=== PATIENT | female | born 1955 | race Caucasian/White ===

== ENCOUNTER 2021-08-24 00:54 | Day surgery (SDC) | payer BC, SELFPAY ==
[2021-08-22 08:32] VITALS: BMI 25.8
[2021-08-24 06:27] VITALS: BP 143/79; PULSE 75; RESP 18; TEMP 36.1; O2SAT 99
[2021-08-24] MEDS: LACTATED RINGERS 1,000 ML 150 ML IV CONT (06:34)
--- NOTE | 2021-08-24 06:47 | WPDGICN ---
Assessment and Plan Assessment and plan (1) Colon cancer screening: Code(s): Z12.11 - Encounter for screening for malignant neoplasm of colon Status: Acute (2) Personal history of colonic polyps: Code(s): Z86.010 - Personal history of colonic polyps Status: Acute Assessment and Plan: Colonoscopy with possible biopsy or polypectomy or cautery or injection of substances. GI Consult Note Consult date/time: 08/24/21 06:47 HPI: Aubrie Sanz is a 66 year old female Was referred for colon cancer screening. She had a polyp removed about 12 years ago. Her last colonoscopy was in 2016. She is not having any blood in her stools or other significant symptoms at this time, except that over the past few years she has noticed her stools are softer and she has bowel movements with a little more urgency. Occasionally she actually have an accident. Review of Systems Review of Systems: All systems reviewed & are unremarkable except as noted in HPI and below PMFSH Past Medical History Medical History B12 deficiency Depression Hyperlipidemia LDL goal <100 Hypothyroidism (acquired) Osteoporosis Vitamin D deficiency Family History Family History Grandparent Acute myocardial infarction Family history of lung cancer Mother Acute myocardial infarction Sibling Acute myocardial infarction Social History Social History Smoking packs per day: 1 Smoking cigarettes per day: 20.0 Years smoked: 20 Smoking pack-years: 20.00 Smoking status: Current some day smoker Tobacco type: cigarettes Smoking end date: 05/28/08 Additional smoking assessment comments: STARTED SMOKING AGAIN 02/2021 SMOKING COUPLE CIGS A DAY, PLANNING TO STOP Alcohol intake: current Drinks per week: 10 Alcohol use details: GLASSES WINE Substance use: never Substance use type: does not use Living arrangements: with family Gender identity (if verbalized by the patient): Female Spiritual care concerns: No Meds Home Medications and Allergies Home Medications Medication Instructions Recorded Confirmed Type atorvastatin 40 mg tablet 40 mg PO QHS #90 tablet 06/01/21 08/22/21 Rx fluoxetine 40 mg capsule 40 mg PO DAILY #90 cap 06/01/21 08/22/21 Rx liothyronine 25 mcg tablet 25 mcg PO DAILY #90 tablet 06/07/21 08/22/21 Rx cholecalciferol (vitamin D3) 25 mcg PO DAILY 08/22/21 08/22/21 History [Vitamin D3] Allergies Allergy/AdvReac Type Severity Reaction Status Date / Time amoxicillin Allergy Unknown Unknown Verified 08/24/21 06:24 Penicillins Allergy Unknown Unknown Verified 08/24/21 06:24 NFA Allergy Unknown Unknown Uncoded 08/24/21 06:24 Vital Signs Vital Signs - 24 hr 08/24/21 06:27 Temperature 36.1 C L Pulse Rate 75 Respiratory Rate 18 Blood Pressure 143/79 H Pulse Oximetry 99 Exam Const: General: alert Orientation/consciousness: patient oriented x3 Resp: Auscultation: clear to auscultation bilaterally Cardio: Rhythm: regular rhythm GI: GI Palp: Yes Soft to palpation and No Tenderness to palpation present (GI) Neuro: General: patient oriented x3 AMG Consult Billing Observation Consult [id number] [facility] Pt Lvl 2
--- NOTE | 2021-08-24 07:20 | P.PNAN_ITS ---
Anes - Initial Pre Proc Eval Procedure: Operation Date: 08/24/21 07:30 Proposed Procedures p Colonoscopy - Ney Strickland MD Date/Time: 08/24/21 07:20 Surgeon: Ney Strickland MD Pre Op Diagnosis: hx of colon polyps, neoplasm screening Patient Data Age: 66 Gender: F Height: 1.57 m Weight: 61.4 kg Last Vital Signs Temp 36.1 C L 08/24/21 06:27 Pulse 75 08/24/21 06:27 Resp 18 08/24/21 06:27 BP 143/79 H 08/24/21 06:27 Pulse Ox 99 08/24/21 06:27 Allergies Allergy/AdvReac Type Severity Reaction Status Date / Time amoxicillin Allergy Unknown Unknown Verified 08/24/21 06:24 Penicillins Allergy Unknown Unknown Verified 08/24/21 06:24 NFA Allergy Unknown Unknown Uncoded 08/24/21 06:24 Home Medications Medication Instructions Recorded Confirmed Type atorvastatin 40 mg tablet 40 mg PO QHS #90 tablet 06/01/21 08/22/21 Rx fluoxetine 40 mg capsule 40 mg PO DAILY #90 cap 06/01/21 08/22/21 Rx liothyronine 25 mcg tablet 25 mcg PO DAILY #90 tablet 06/07/21 08/22/21 Rx cholecalciferol (vitamin D3) 25 mcg PO DAILY 08/22/21 08/22/21 History [Vitamin D3] Patient hx anesthesia problems: none Family hx anesthesia problems: none Results Review: All pre-operative results and documents have been reviewed as part of the pre-operative evaluation. [facility] Past Medical History Medical History B12 deficiency Depression Hyperlipidemia LDL goal <100 Hypothyroidism (acquired) Osteoporosis Vitamin D deficiency Family History Family History Grandparent Acute myocardial infarction Family history of lung cancer Mother Acute myocardial infarction Sibling Acute myocardial infarction Social History Social History Smoking packs per day: 1 Smoking cigarettes per day: 20.0 Years smoked: 20 Smoking pack-years: 20.00 Smoking status: Current some day smoker Tobacco type: cigarettes Smoking end date: 05/28/08 Additional smoking assessment comments: STARTED SMOKING AGAIN 02/2021 SMOKING COUPLE CIGS A DAY, PLANNING TO STOP Alcohol intake: current Drinks per week: 10 Alcohol use details: GLASSES WINE Substance use: never Substance use type: does not use Living arrangements: with family Gender identity (if verbalized by the patient): Female Spiritual care concerns: No Anes - Eval Final PreProcedure Day of Procedure 08/24/21 07:20 Patient weight: normal Heart: regular rate and rhythm Lungs: clear to auscultation and normal air movement Airway: Mallampati scale class II Neurological: alert and oriented Last oral intake: >/= 8 hours ASA classification: II Emergent: no Anesthetic plan: proceed Anesthesia type and monitoring: general GIVS Results Review: All pre-operative results and documents have been reviewed as part of the pre-operative evaluation. Informed Consent: The patient's anesthetic plan and its attendant risks and benefits were discussed with the patient/family/POA. Questions were solicited and answers provided to the satisfaction of the patient/family/POA.
[2021-08-24 07:46] VITALS: BP 115/70; PULSE 64; RESP 20; O2SAT 99
[2021-08-24 07:56] VITALS: BP 125/80; PULSE 69; RESP 18; O2SAT 100
[2021-08-24 08:06] VITALS: BP 122/80; PULSE 55; RESP 14; O2SAT 100
== END 2021-08-24 08:29 | disposition home or self-care (01) ==
PROVIDERS: PCP Family Medicine; Visit Provider Internal Medicine Gastroenterology
PROC: 0DJD8ZZ Inspection of Lower Intestinal Tract, Via Natural or Artificial Opening Endoscopic (ICD-10-PCS; CPT 45378; principal; 2021-08-24 07:30)
DX: Z12.11 Encounter for screening for malignant neoplasm of colon (principal); K64.8 Other hemorrhoids; K57.30 Diverticulosis of large intestine without perforation or abscess without bleeding; Z86.010 Personal history of colon polyps; E03.9 Hypothyroidism, unspecified; M81.0 Age-related osteoporosis without current pathological fracture; E55.9 Vitamin D deficiency, unspecified; E78.5 Hyperlipidemia, unspecified; E53.8 Deficiency of other specified B group vitamins; F32.9 Major depressive disorder, single episode, unspecified; F17.210 Nicotine dependence, cigarettes, uncomplicated
CPT/HCPCS: 45380; 88305; J2704; J7120

== ENCOUNTER 2021-09-06 13:58 | Outpatient (CLI) | payer BC, SELFPAY ==
--- NOTE | ~2021-09-06 | XR_ITS ---
EXAM: XR hip RT min 3V w AP pelvis HISTORY: M25.551 - Pain in right hip, OVERUSE INJURY X 1 YEAR AGO COMPARISON: None available FINDINGS: Severe degenerative lumbar changes. Mild bilateral SI joint degenerative change. Superior hip joint space narrowing and sclerosis, moderate in the right hip and mild in the left. No fracture or dislocation. No lytic or blastic lesion. IMPRESSION: Moderate right hip osteoarthritis. Reviewed, dictated and finalized at location K.
== END 2021-09-06 13:59 | disposition home or self-care (01) ==
PROVIDERS: PCP Family Medicine; Visit Provider Family Medicine
DX: M16.11 Unilateral primary osteoarthritis, right hip (principal)
CPT/HCPCS: 73502

== ENCOUNTER 2022-03-15 15:39 | Outpatient (CLI) | payer MEDICARE, BC, SELFPAY ==
--- NOTE | ~2022-03-15 | MM_ITS ---
EXAMINATION: MM screening [facility] BI w jc HISTORY: Screening TECHNIQUE: Craniocaudal and mediolateral oblique 3-D tomosynthesis images were obtained and synthetic 2-D images were generated. CAD analysis was submitted and interpreted. COMPARISON: Comparison to multiple prior studies sequentially, with oldest reviewed study dated 09/21. BREAST PARENCHYMAL COMPOSITION: There are scattered areas of fibroglandular density. FINDINGS: There is no evidence of suspicious mass, calcification, or architectural distortion to sugg est malignancy in either breast. There has been no suspicious interval change. IMPRESSION: 1. No mammographic evidence of malignancy. 2. Recommend routine screening mammography in one year. BI-RADS Category 1: Negative Reviewed, dictated and finalized at location A.
== END 2022-03-15 15:40 | disposition home or self-care (01) ==
LOC: ANHIMG 15:44
PROVIDERS: PCP Family Medicine; Visit Provider Family Medicine
DX: Z12.31 Encounter for screening mammogram for malignant neoplasm of breast (principal)
CPT/HCPCS: 77063; 77067

== ENCOUNTER 2022-07-10 10:31 | Outpatient (CLI) | payer OTHER, SELFPAY ==
--- NOTE | 2022-07-10 10:46 | ECG_ITS ---
Measurements Intervals [place] Rate: 67 P: 64 CA: 160 QRS: -55 QRSD: 94 T: 0 QT: 397 QTc: 420 Interpretive Statements SINUS RHYTHM WITH OCCASIONAL SUPRAVENTRICULAR PREMATURE COMPLEXES LEFT ANTERIOR FASCICULAR BLOCK [QRS AXIS <= -45, QR IN I, RS IN II] ABNORMAL ECG NO PREVIOUS ECG AVAILABLE FOR COMPARISON Electronically Signed On 07-10-2022 12:18:09 CLEANING TEAM MEMBER by Felix Hassan M.D.
== END 2022-07-10 10:32 | disposition home or self-care (01) ==
PROVIDERS: PCP Family Medicine; Visit Provider Family Medicine
DX: I49.8 Other specified cardiac arrhythmias (principal); I44.4 Left anterior fascicular block
CPT/HCPCS: 93005

== ENCOUNTER 2022-09-01 14:41 | Outpatient (CLI) | payer OTHER, SELFPAY ==
--- NOTE | ~2022-09-01 | DEXA_ITS ---
Bone Density Report Name: JW CHAVARRIA Age: 67 Sex: Female Ethnicity: White Date of : 1955 Indication: postmenopausal; screening for osteoporosis; height loss; Referring Provider: MARY ANN TANNER Study: Bone densitometry was performed. Exam Date: September 01, 2022 Accession number: [id number] Bone Density: Region BMD T-score Z-score Classification AP Spine(L1-L4) 1.135 0.8 2.6 Normal Femoral Neck (Left) 0.596 -2.3 -0.7 Osteopenia Total Hip (Left) 0.750 -1.6 -0.3 Osteopenia Femoral Neck (Right) 0.638 -1.9 -0.4 Osteopenia Total Hip (Right) 0.709 -1.9 -0.7 Osteopenia Total Hip Mean 0.729 -1.8 -0.5 Osteopenia World Health Organization criteria for BMD impression classify patients as: Normal (T-score at or above -1.0), Osteopenia (T-score between -1.0 and -2.5), or Osteoporosis (T-score at or below -2.5). 10-year Fracture Risk: FRAX not reported because: Treated for osteoporosis Clinical Information Provided by Patient: Smokes Is being treated for osteoporosis Has used the following medications: Reclast (i.e. zoledronate), Vitamin D Patient maximum height was 63 Menopause Age: 57 Does not regularly consume dairy products Drinks caffeinated beverages Onset of menses at age 14 Number of children 0 Impression: The patient has low bone mass, based on the Left Femoral Neck T-score. The patient has risk factors, including: smoking. Discussion: It is important to ask patients whether they are taking their medications and to encourage continued and appropriate compliance with their osteoporosis therapies to reduce fracture risk. It is also important to review their risk factors and encourage appropriate calcium and vitamin D intakes, exercise, fall prevention and other lifestyle measures. Follow-Up: Consider a repeat BMD and Vertebral Fracture Assessment (VFA) exam in 2 years or sooner if medically necessary, to reassess this patient's status. Reported by: CHRISTINE on 09/01/2022 2:57:00 PM. Reviewed, dictated and finalized at location A. JACEK
== END 2022-09-01 14:42 | disposition home or self-care (01) ==
LOC: ANHIMG 14:43
PROVIDERS: PCP Family Medicine; Visit Provider Family Medicine
DX: M81.0 Age-related osteoporosis without current pathological fracture (principal); M85.852 Other specified disorders of bone density and structure, left thigh; M85.851 Other specified disorders of bone density and structure, right thigh
CPT/HCPCS: 77080

== ENCOUNTER 2022-12-06 10:43 | Outpatient (CLI) | payer OTHER, SELFPAY ==
[2022-12-06 18:30] LABS: Alanine Aminotransferase 28 U/L (6-35); Alkaline Phosphatase 57 U/L (38-126); Anion Gap -2 mmol/L (8-16); Aspartate Amino Transferase 33 U/L (14-36); Blood Urea Nitrogen 12 mg/dL (7-17); Calcium 8.7 mg/dL (8.4-10.2); Carbon Dioxide 31 mmol/L (22-30); Chloride 105 mmol/L (98-107); Estimated Glomerular Filt Rate > 60; Glucose 88 mg/dL (65-110); Potassium 4.2 mmol/L (3.4-5.0); Sodium 134 mmol/L (137-145)
[2022-12-06 19:14] LABS: Thyroid Stimulating Hormone Reflex 0.365 uIU/mL (0.465-4.68)
[2022-12-06 19:39] LABS: Free T4 Free Thyroxine Reflex 0.17 ng/dL (0.78-2.19)
== END 2022-12-06 10:44 | disposition home or self-care (01) ==
LOC: ANHGOSHLAB 10:44
PROVIDERS: PCP Family Medicine; Visit Provider Family Medicine
DX: E78.5 Hyperlipidemia, unspecified (principal); Z79.899 Other long term (current) drug therapy; E03.9 Hypothyroidism, unspecified
CPT/HCPCS: 36415; 80053; 84439; 84443

== ENCOUNTER 2023-03-21 11:31 | Outpatient (CLI) | payer OTHER, SELFPAY ==
[2023-03-21 12:24] LABS: CRP < 0.5 mg/dL (<1.0)
[2023-03-21 12:31] LABS: Erythrocyte Sedimentation Rate 16 mm/hr (0-20)
[2023-03-21 12:58] LABS: Thyroid Stimulating Hormone Reflex 0.707 uIU/mL (0.465-4.68)
[2023-03-26 13:37] LABS: Immunoglobulin A 142 mg/dL (70-320); TTG IGA AB <1.0 U/mL (<15.0)
== END 2023-03-21 11:32 | disposition home or self-care (01) ==
LOC: ANHLAB 11:34
PROVIDERS: PCP Family Medicine; Referring Provider Nurse Practitioner; Visit Provider Family Medicine
DX: E03.9 Hypothyroidism, unspecified (principal); K58.0 Irritable bowel syndrome with diarrhea
CPT/HCPCS: 36415; 82784; 84443; 85652; 86140; 86364

== ENCOUNTER 2023-03-27 13:13 | Outpatient (NON) | payer OTHER, SELFPAY ==
[2023-03-27 14:47] LABS: Toxigenic C. Diff NEGATIVE (NEGATIVE)
[2023-04-04 21:12] LABS: Calprotectin, Stool 32 mcg/g; Pancreatic Elastase, Stool >500 mcg/g
== END 2023-03-27 13:14 | disposition home or self-care (01) ==
PROVIDERS: PCP Family Medicine; Visit Provider Nurse Practitioner
DX: K58.0 Irritable bowel syndrome with diarrhea (principal)
CPT/HCPCS: 82653; 83993; 87045; 87427; 87449; 87493

== ENCOUNTER 2023-08-13 10:22 | Outpatient (CLI) | payer OTHER, SELFPAY ==
[2023-08-13 11:09] LABS: Basophils Percent Auto 0.7 % (0.2-1.2); Eosinophils Absolute Auto 0.2 K/mm3 (0-0.3); Hematocrit 41.9 % (37.0-47.0); Hemoglobin 13.4 g/dL (12.0-15.0); Immature Granulocyte Absolute 0.01 K/mm3 (0.00-0.031); Immature Granulocyte Percent A 0.2 % (0-0.5); Lymphocytes Absolute Auto 2.45 K/mm3 (0.9-3.2); Lymphocytes Percent Auto 40.4 % (18.3-44.2); Mean Corpuscular Hemoglobin 32.2 pg (26-34); Mean Corpuscular Volume 100.7 fl (80-100); Mean Platelet Volume 10.7 fl (7.4-10.4); Monocytes Absolute Auto 0.5 K/mm3 (0.1-0.6); Monocytes Percent Auto 8.1 % (2.6-8.5); Neutrophils Absolute Auto 2.9 K/mm3 (1.3-6.7); Neutrophils Percent Auto 47.6 % (45.5-73.1); Platelet Count Result 253 k/mm3 (150-375); Red Blood Count 4.16 M/mm3 (4.2-5.4); Red Cell Distribution Width 14.2 % (11.5-14.5); White Blood Count 6.1 K/mm3 (4.5-10.0)
[2023-08-13 11:33] LABS: LDL Cholesterol Direct 67 mg/dL
[2023-08-13 11:34] LABS: Alanine Aminotransferase 30 U/L (6-35); Albumin Level 4.5 g/dL (3.5-5.1); Alkaline Phosphatase 82 U/L (38-126); Anion Gap 5 mmol/L (8-16); Aspartate Amino Transferase 35 U/L (14-36); Bilirubin,Total 1.1 mg/dL (0.2-1.3); Blood Urea Nitrogen 18 mg/dL (7-17); Calcium 9.7 mg/dL (8.4-10.2); Carbon Dioxide 29 mmol/L (22-30); Chloride 105 mmol/L (98-107); Cholesterol 186 mg/dL (0-200); Estimated Glomerular Filt Rate > 60; Glucose 94 mg/dL (65-110); Sodium 139 mmol/L (137-145); Triglycerides 58 mg/dL (<150)
[2023-08-13 12:16] LABS: HDL Direct 77 mg/dL
[2023-08-13 13:28] LABS: Vitamin D 25 Hydroxy 55.6 ng/mL
[2023-08-13 13:42] LABS: Thyroid Stimulating Hormone Reflex 0.244 uIU/mL (0.465-4.68)
[2023-08-13 15:49] LABS: Free T4 Free Thyroxine Reflex 0.27 ng/dL (0.78-2.19)
== END 2023-08-13 10:23 | disposition home or self-care (01) ==
PROVIDERS: PCP Family Medicine; Visit Provider Family Medicine
DX: E03.9 Hypothyroidism, unspecified (principal); E78.5 Hyperlipidemia, unspecified; E55.9 Vitamin D deficiency, unspecified; F32.9 Major depressive disorder, single episode, unspecified; Z00.00 Encounter for general adult medical examination without abnormal findings; E53.8 Deficiency of other specified B group vitamins
CPT/HCPCS: 36415; 80053; 80061; 82306; 82607; 84439; 84443; 85025

== ENCOUNTER 2023-12-31 10:16 | Outpatient (CLI) | payer OTHER, SELFPAY ==
--- NOTE | ~2023-12-31 | CT_ITS ---
CT Scan of the Chest without Contrast: Clinical Indication: Lung cancer screening, nicotine dependence Technique: Contiguous sections were acquired throughout the chest without intravenous contrast. Dose reduction technique was used on this scan by utilizing automated exposure control and iterative recon struction technique. The dose-length product (DLP) was 70.52 mGy-cm. Findings: There is no evidence of any significant mediastinal, hilar or axillary lymphadenopathy. Coronary jason ry calcifications are present. There is no evidence of pleural or pericardial effusion. 3 mm pleural-based nodule noted right lower lobe (axial image 71). 2 mm left lower lobe pulmonary nod ule present (axial image 71). Images through the upper abdomen reveal no abnormalities. Impression: Lung RADS 2: Benign appearance. 12 month follow-up screening CT advised. Reviewed, dictated and finalized at location . Impression: Lung RADS 2: Benign appearance. 12 month follow-up screening CT advised.
== END 2023-12-31 10:17 | disposition home or self-care (01) ==
LOC: ANHIMG 10:16
PROVIDERS: PCP Family Medicine; Visit Provider Family Medicine
DX: Z12.2 Encounter for screening for malignant neoplasm of respiratory organs (principal); Z87.891 Personal history of nicotine dependence
CPT/HCPCS: 71271

== ENCOUNTER 2024-04-22 09:41 | Outpatient (CLI) | payer OTHER, MEDICAID, SELFPAY ==
--- NOTE | ~2024-04-22 | MM_ITS ---
EXAMINATION: MM screening [facility] BI w jc HISTORY: Screening TECHNIQUE: Craniocaudal and mediolateral oblique 3-D tomosynthesis images were obtained and synthetic 2-D images were generated. CAD analysis was submitted and interpreted. COMPARISON: Comparison to multiple prior studies sequentially, with oldest reviewed study dated 02/25. BREAST PARENCHYMAL COMPOSITION: Not dense: There are scattered areas of fibroglandular density. FINDINGS: There is no evidence of suspicious mass, calcification, or architectural distortion to sugg est malignancy in either breast. There has been no suspicious interval change. IMPRESSION: 1. No mammographic evidence of malignancy. 2. Recommend routine screening mammography in one year. BI-RADS Category 1: Negative Reviewed, dictated and finalized at location B. 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
== END 2024-04-22 09:42 | disposition home or self-care (01) ==
LOC: ANHIMG 09:42
PROVIDERS: PCP Family Medicine; Visit Provider Family Medicine
DX: Z12.31 Encounter for screening mammogram for malignant neoplasm of breast (principal)
CPT/HCPCS: 77063; 77067

== ENCOUNTER 2024-04-22 10:25 | Outpatient (CLI) | payer OTHER, MEDICAID, SELFPAY ==
[2024-04-22 11:07] LABS: Alanine Aminotransferase 32 U/L (6-35); Albumin Level 4.8 g/dL (3.5-5.1); Alkaline Phosphatase 80 U/L (38-126); Anion Gap 4 mmol/L (4-12); Aspartate Amino Transferase 38 U/L (14-36); Bilirubin,Total 1.2 mg/dL (0.2-1.3); Blood Urea Nitrogen 9 mg/dL (7-17); Calcium 9.8 mg/dL (8.4-10.2); Carbon Dioxide 30 mmol/L (22-30); Chloride 106 mmol/L (98-107); Estimated Glomerular Filt Rate > 60; Glucose 97 mg/dL (65-110); Sodium 140 mmol/L (137-145)
[2024-04-22 11:41] LABS: Thyroid Stimulating Hormone Reflex 0.248 uIU/mL (0.465-4.68)
[2024-04-22 15:29] LABS: Free T4 Free Thyroxine Reflex 0.28 ng/dL (0.78-2.19)
== END 2024-04-22 10:26 | disposition home or self-care (01) ==
LOC: ANHLAB 10:26
PROVIDERS: PCP Family Medicine; Visit Provider Family Medicine
DX: E03.9 Hypothyroidism, unspecified (principal); K58.0 Irritable bowel syndrome with diarrhea; I10 Essential (primary) hypertension
CPT/HCPCS: 36415; 80053; 84439; 84443

== ENCOUNTER 2024-10-07 13:47 | Outpatient (CLI) | payer MEDICARE, SELFPAY ==
--- NOTE | ~2024-10-07 | XR_ITS ---
EXAMINATION: XR lg joint inject/asp w image DATE: 10/07/2024 14:55 INDICATION: Right hip arthritis TECHNIQUE: A time-out was performed to verify the patient's name, date of , and procedure to b e performed. The procedure including the risks, benefits, and alternatives was discussed with the pat ient. Risks discussed included bleeding and infection. The patient understood the risks and agreed to proceed. The skin overlying the right hip joint was prepped and draped in usual sterile fashion. A nesthetic was administered with 1% lidocaine subcutaneously. A 22 G needle was advanced under fluoro scopic guidance into the joint. Injection of 1 mL of Omnipaque 240 confirmed intra-articular positio n of the needle. Subsequently, injectate consisting of 3 mL of a 2:1 mixture of 0.5% bupivacaine: 80 mg/mL Depo-Medrol for a total dose of 80 mg Depo-Medrol was instilled. Washout of contrast was seen confirming intra-articular administration. The needle was removed and the entry site was cleaned and dressed. There were no immediate complications. Fluoroscopy exposure time was 0.1 minutes. The total number of images was 1. Total DAP was 0.455 Gycm^2 FINDINGS: Real-time fluoroscopy demonstrates the needle in the right hip joint. Patient's pain prior to procedure:5/10. Patient's pain following the procedure: 0/10. IMPRESSION: 1. Successful right hip joint injection of local anesthetic and steroid with decrease in the patient' s presenting pain. Reviewed, dictated and finalized at location A. IMPRESSION: 1. Successful right hip joint injection of local anesthetic and steroid with de crease in the patient's presenting pain.
--- OUTSIDE RECORDS SUMMARY | 2024-10-07 14:12 | XMS_ITS | Clinical Summary ---
Author Organization [facility] Address [address] [place] [id number] Care Team Providers Care Crystal Grower Name Role Phone Aure Estrada MD Primary Care Provider Ney Strickland MD Unavailable [phone] Uzma Bajwa MD Unavailable [phone] Allergies Active Allergy Reactions Criticality Noted Date Comments Penicillins Unknown 02/08/2024 Medications atorvastatin (LIPITOR) 40 MG tablet Take 1 tablet (40 mg total) by mouth nightly at bedtime. Active FLUoxetine (PROZAC) 40 MG capsule Take 1 capsule (40 mg total) by mouth daily. Active Social History Tobacco Use Types Packs/Day Years Used Date Smoking Tobacco: Every Day Cigarettes Smokeless Tobacco: Never Tobacco Cessation:Ready to Q uit: Not Asked; Counseling Given: Not Answered Alcohol Use Standard Drinks/Week Comments Yes 0 (1 standard drink = 0.6 oz pur e alcohol) 6 drinks per week Comments Unknown Sex and Gender Information Value Date Recorded Sex Assigned at Not on file Legal Sex Female 2:41 PM CDT Gender Identity Not on file Sexual Orientation Not on file Last Filed Vital Signs Vital Sign Reading Time Taken Comments Blood Pressure 137/65 02/08/2024 4:41 PM CDT Pulse 61 02/08/2024 4:41 PM CDT Temperature 36.9 C (98.5 F) 02/08/2024 4:41 PM CDT Respiratory Rate 18 02/08/2024 4:41 PM CDT Oxygen Saturation 97% 02/08/2024 4:41 PM CDT Inhaled Oxygen Concentration - - Weight 58.7 kg (129 lb 6.6 oz) 02/08/2024 12:35 PM CDT Height 154.9 cm (5' 1 ) 02/08/2024 12:35 PM CDT Body Mass Index 24.45 02/08/2024 12:35 PM CDT Plan of Treatment Health Maintenance Due Date Last Done Comments Colorectal Cancer Screening Colonoscopy (10 Years) 1955 Hepatitis C 1975 Mammogram Screening 1997 Annual Medicare Wellness Visit 2022 Dexa Scan (General) 2022 COVID-19 Vaccine (4 - 2023-2 5 season) 2024 05/13/2021, 09/27/2020, 08/21/2020 RSV Immunization or 60+ Years (1 - 1-dose 75+ series) 01/23/2032 DTaP, Tdap and Td Vaccines ( 3 - Td or Tdap) 06/26/2032 06/26/2022, 10/04/2007 Zoster Vaccines Completed 05/13/2021, 02/04/2021 Pneumococcal Vaccine: 50+ Years Completed 06/26/2022 Meningococcal B Vaccine Aged Out No l onger eligible based on patient's age to complete this topic Meningococcal Vaccine Aged Out No galdino nanci eligible based on patient's age to complete this topic RSV Immunizations Under 20 Months Aged Out No longer eligible b ased on patient's age to complete this topic Insurance DR [place] [id number] [facility] Care Teams Crystal Grower Relationship Specialty Start Date End Date Aure Estrada MD [address] [place] [address] PCP - General FAMILY PRACTICE 02/08/24 Ney Strickland MD [address] [facility] [address] [place] [address] GASTROENTEROLOGY 02/08/24 Uzma Bajwa MD [address] [place] [address] DERMATOLOGY 02/08/24
== END 2024-10-07 13:48 | disposition home or self-care (01) ==
PROVIDERS: PCP Family Medicine; Visit Provider Nurse Practitioner Family
DX: M16.11 Unilateral primary osteoarthritis, right hip (principal)
CPT/HCPCS: 20610; 77002; J1010